=== PATIENT | male | born 1960 | race Caucasian/White ===

== ENCOUNTER 2019-04-15 19:56 | Emergency (ER) | payer OTHER ==
[2019-04-15] MEDS ORDERED: Morphine 4 MG/ML VIAL ONE (20:29)
[2019-04-15] MEDS ORDERED: Orphenadrine Citrate 60 MG/2 ML VIAL ONE (20:30)
[2019-04-15] MEDS ORDERED: Ondansetron PF 4 MG/2 ML Vial ONE (20:30)
[2019-04-15 20:43] LABS: #Basophils 0.1 thou/uL (0.0-0.2); #Eosinphils 0.3 thou/uL (0.0-0.7); #Monocytes 0.7 thou/uL (0.11-0.59); #Neutrophils 5.3 thou/uL (1.40-6.50); %Basophils 1.4 % (0.0-1.0); %Eosinophils 3.1 % (0.0-10.0); %Lymphocytes 24.1 % (21.0-51.0); %Monocytes 8.2 % (0.0-10.0); %Neutrophils 63.2 % (42.0-75.0); Hemoglobin 14.3 g/dL (14.0-18.0); Mean Corpuscular Hemoglobin 32.2 pg (27.0-31.0); Mean Corpuscular Volume 92.1 fL (78.0-98.0); Mean Platelet Volume 7.4 fL (7.4-10.4); Platelet Count 226 thou/uL (130-400); RBC Distribution Width 11.3 % (11.5-14.5); Red Blood Cell (RBC) Count 4.42 mill/uL (4.70-6.10); White Blood Cell (WBC) Count 8.4 thou/uL (4.8-10.8)
[2019-04-15 21:02] LABS: ALT (SGPT) 25 U/L (8-55); AST (SGOT) 32 U/L (5-34); Albumin 4.6 g/dL (3.5-5.0); Alkaline Phosphatase 113 U/L (40-110); Anion Gap 19 mmol/L (10-20); BUN (Urea Nitrogen) 18 mg/dL (8.4-25.7); Bilirubin, Total 0.5 mg/dL (0.2-1.2); CK (CPK) 243 U/L (30-200); Calc. Creatinine Clearance 0 mL/min (70-130); Calcium 9.3 mg/dL (7.8-10.44); Carbon Dioxide 23 mmol/L (22-29); Chloride 104 mmol/L (98-107); Estimated GFR-MDRD 78; Glucose 122 mg/dL (70-105); Lipase 12 U/L (8-78); Potassium 4.3 mmol/L (3.5-5.1); Protein, Total 7.6 g/dL (6.0-8.3); Sodium 142 mmol/L (136-145)
[2019-04-15] MEDS ORDERED: Morphine 2 MG/ML SYRINGE ONE (21:58)
--- NOTE | 2019-04-15 23:20 | CT ---
CT OF CHEST, ABDOMEN AND PELVIS 04/15/19 COMPARISON: None. HISTORY: Back pain, evaluate for an aortic dissection. TECHNIQUE: Axial CT imaging at 5 mm intervals from thoracic inlet through pubic symphysis without contrast. Maritza nal and sagittal reformatted imaging obtained. FINDINGS: Lack of contrast limits assessment of the viscera, bowel, vascular structures, and for lymphadenopath y. Aortic dissection cannot be evaluated/excluded as contrast media was not administered. No pleural, pericardial, or mediastinal fluid. No pneumothorax. Mild linear density in the lingula an d inferior posterior left lower lobe suggests volume loss or scar. Scattered areas of pleural calcif ication noted on the right. Old right sided rib fractures are noted. No acute osseous abnormality not ed within the chest. No evidence for endobronchial lesion. No evidence for aneurysm of the thoracic o r abdominal aorta. No free intraperitoneal air or fluid. There is a calcified stone within the gallbladder. Limited assessment of the liver, spleen, pancreas, and adrenal glands is unremarkable. There is a punctate nonobstructing stone within the upper pole o f the left kidney. Limited assessment of the bowel demonstrates no acute findings. There is scattered atherosclerotic ca lcification of the infrarenal abdominal aorta. There is mild stranding of the mesenteric fat adjacen t to the duodenum which may signify mild inflammatory change. Osseous structures of the abdomen/pelvis demonstrate degenerative change of bilateral hips and bilate ral sacroiliac joints. There is multilevel lower lumbar spine degenerative change with bilateral facet hypertrophy, especial ly at L5-S1 with associated bilateral neural foraminal stenosis. There is no worrisome lytic or blast ic bone lesion. IMPRESSION: No evidence for aneurysm of the thoracic or abdominal aorta. Numerous incidental findings as detailed above. Dissection cannot be excluded on the basis of a noncontrast enhanced study. POS: [facility]
[2019-04-15 23:55] LABS: Bilirubin Negative (Negative); Blood, Urine Negative (Negative); Clarity Clear (Clear); Glucose, Urine (Dipstick) Negative (Negative); Leukocyte Negative (Negative); Nitrite Negative (Negative); Protein, Urine (Dipstick) Negative (Neg-Trace)
[2019-04-16] MEDS ORDERED: Acetaminophen 325 MG TAB ONE (00:46)
[2019-04-16] MEDS ORDERED: tiZANidine HCl 4 MG TAB PO SCH (01:00)
[2019-04-16] MEDS ORDERED: Acetaminophen/Codeine 30-300mg Tablet ONE (06:48)
== END 2019-04-16 07:10 | disposition home or self-care (01) ==
LOC: NAV ERS 19:56
DX: G89.29 Other chronic pain (principal); M54.5 Low back pain; M62.830 Muscle spasm of back; E86.0 Dehydration; R93.89 Abnormal findings on diagnostic imaging of other specified body structures; F17.290 Nicotine dependence, other tobacco product, uncomplicated; Z79.899 Other long term (current) drug therapy
CPT/HCPCS: 71250; 74177; 80053; 81003; 82550; 83690; 85025; 93005; 94760; 96374; 96375; 96376; J2270; J2360; J2405